=== PATIENT | male | born 1965 | race Caucasian/White ===

== ENCOUNTER 2021-05-10 10:23 | Emergency (ER) | payer OTHER, SELFPAY ==
[2021-05-10 10:31] VITALS: BP 131/74; PULSE 126; RESP 20; TEMP 37.1; O2SAT 98
--- NOTE | 2021-05-10 11:27 | ED.GENADULT ---
HPI - General Adult General Chief complaint: Urogenital-Male Stated complaint: headache, delerium fever body aches Time Seen by Provider: 05/10/21 11:15 Source: patient, RN notes reviewed and old records reviewed Mode of arrival: ambulatory Limitations: no limitations History of Present Illness HPI narrative: 55-year-old male who presents to [facility] with complaints of having body aches, fevers,chills, nasal drainage, headache, nausea with some diarrhea for the past 2 days. Patient states he feels like he has the flu. He denies any sore throat, acute nasal or chest congestion, denies any vomiting. Patient states that he has been running low grade temperatures of 99F. He states that he has had both of is COVID immunizations.Patient denies any acute cough or any shortness of breath with respirations even and nonlabored. Related Data Home Medications Medication Instructions Recorded Confirmed BuSpar 05/10/21 Allergies Allergy/AdvReac Type Severity Reaction Status Date / Time naproxen Allergy Unknown Verified 05/10/21 11:19 Review of Systems Review of Systems: Narrative: CONSTITUTIONAL: reports low grade fever, chills, or sweats. EYES: Denies visual changes, redness, or discharge. ENT: Positive rhinorrhea, no congestion, sore throat, or otalgia. CARDIOVASCULAR: Denies chest pain, palpitations, or edema. RESPIRATORY: Denies cough or dyspnea. GASTROINTESTINAL: Denies abdominal pain,positive for nausea, no vomiting, positive for some diarrhea. GENITOURINARY: Denies dysuria or hematuria. SKIN: Denies rash or itching. MUSCULOSKELETAL: Denies back pain, joint pain, reports generalized body aches NEUROLOGIC: Positive for frontal headache, no numbness, or weakness, states feels some lightheadedness at times PSYCHIATRIC:Positive for history of anxiety or depression. All systems reviewed & are unremarkable except as noted in HPI and below PMFSH Past Medical History Medical History (Updated 05/11/21 @ 13:44 by Cyndy Patel NP) Anxiety and depression Diabetes Elevated cholesterol Hypertension Surgical History Surgical History (Updated 05/11/21 @ 13:48 by Cyndy Patel NP) H/O arthroscopic knee surgery bilateral History of bilateral carpal tunnel release Family History Family History (Updated 05/11/21 @ 13:44 by Cyndy Patel NP) Other Diabetes mellitus Hypertension Social History Social History (Updated 05/11/21 @ 13:46 by Cyndy Patel NP) Smoking status: Former smoker Additional smoking assessment comments: quit 8 years ago Alcohol intake: unknown Substance use: unknown Living arrangements: with family Gender identity (if verbalized by the patient): Male Comments At time of signature, agree with nursing past medical, surgical, social and family history. There is no relevant family history pertinent to the presenting complaint Exam Narrative: Exam Narrative: GENERAL: Well-appearing, well-nourished, and in no acute distress. HEAD: Normocephalic, atraumatic. EYES: PERRLA and EOMI. ENT: Nares clear, clear rhinorrhea no epistaxis. Mucous membranes moist.TM's normal with good light reflex, throat pink with no lesions or exudates, no tonsil enlargement, some post nasal drainage NECK: Supple.no lymphadenopathy CHEST: Clear to auscultation. No respiratory distress.no cough noted, SAO2 98% on room air HEART: Regular rate and rhythm. No murmur heard. Normal peripheral pulses. ABDOMEN: Soft, nontender, nondistended, normal active bowel sounds.negative McBurney point tenderness EXTREMITIES: Normal range of motion. No edema. SKIN: Warm, dry, no rash. NEURO: No focal deficits. Alert and oriented x3. Course Vital Signs Vital signs: Vital Signs Temperature 37.1 C 05/10/21 10:31 Pulse Rate 126 H 05/10/21 10:31 Respiratory Rate 20 05/10/21 10:31 Blood Pressure 131/74 05/10/21 10:31 Pulse Oximetry 98 05/10/21 10:31 Temperature 37.1 C 05/10/21 10:31 Pul
[2021-05-11 15:56] LABS: SARS-CoV-2 RNA PCR Negative
== END 2021-05-10 12:32 | disposition home or self-care (01) ==
PROVIDERS: Emergency Provider Registered Nurse; PCP Internal Medicine
DX: B34.9 Viral infection, unspecified (principal); Z20.822 Contact with and (suspected) exposure to COVID-19; Z87.891 Personal history of nicotine dependence; E11.9 Type 2 diabetes mellitus without complications; E78.00 Pure hypercholesterolemia, unspecified; I10 Essential (primary) hypertension
CPT/HCPCS: 81003; 87081; 87086; 87088; 87426; 87804; 87880; 99213; C9803; G0463; U0003; U0005

== ENCOUNTER 2022-03-26 13:56 | Emergency (ER) | payer OTHER, SELFPAY ==
[2022-03-26 14:01] VITALS: BP 131/72; PULSE 87; RESP 20; TEMP 37.1; O2SAT 99
--- NOTE | 2022-03-26 14:02 | ED.URI ---
HPI - URI/Sore Throat General Chief Complaint: Upper Respiratory Infection Stated Complaint: sore throat Time Seen by Provider: 03/26/22 14:02 Source: patient Mode of arrival: ambulatory Limitations: no limitations History of Present Illness HPI Narrative: Antoni is a 56-year-old male patient presenting to the clinic today with complaints of sore throat that began last night. He reports No fever or chills. No known exposure to anybody COVID, flu, or strep. MD elicited complaint: sore throat and nasal congestion Related Data Home Medications Medication Instructions Recorded Confirmed BuSpar 05/10/21 atorvastatin 03/26/22 bupropion HCl mg PO 03/26/22 buspirone mg 03/26/22 buspirone mg 03/26/22 empagliflozin [Jardiance] mg 03/26/22 lisinopril 03/26/22 metformin mg 03/26/22 quetiapine 03/26/22 sitagliptin [Januvia] mg 03/26/22 venlafaxine mg PO 03/26/22 Allergies Allergy/AdvReac Type Severity Reaction Status Date / Time naproxen Allergy Unknown Verified 03/26/22 14:14 Review of Systems Review of Systems: Pertinent positives per HPI. Patient denies any fever, chills, rash, headache, visual changes, dizziness, cough, shortness of breath, chest pain, palpitations, nausea, vomiting, diarrhea, constipation, abdominal pain, or any urinary issues. [facility] Past Medical History Medical History Anxiety and depression Diabetes Elevated cholesterol Hypertension Surgical History Surgical History H/O arthroscopic knee surgery bilateral History of bilateral carpal tunnel release Family History Family History Other Diabetes mellitus Hypertension Social History Social History Smoking status: Former smoker Additional smoking assessment comments: quit 8 years ago Alcohol intake: unknown Substance use: unknown Gender identity (if verbalized by the patient): Male Comments At the time of my signature, I reviewed and agree with the nursing past medical, surgical, social, and family history. There is no relevant family history pertinent to the patient complaint. Exam Narrative: General: Well-developed, well nourished, in no apparent distress Head: Normocephalic, atraumatic Eyes: Pupils equally round and reactive to light bilaterally, EOM intact, sclera and conjunctive clear, no discharge, lids normal Ears: TMs intact and clear, ear canals clear, no drainage, grossly hearing normal. Nose: Nares patent, no discharge, no inflammation, no sinus tenderness. Mouth: Oral pharynx without lesions or masses, good dentition, MMM. Neck: Supple, trachea midline, no enlargement of anterior or posterior cervical nodes, no thyroid masses or goiter palpable. Cardio: Regular rate and rhythm, s1 and s2 normal, no murmur appreciated. Resp: Clear to auscultation bilaterally, no rhonchi, rales, wheezing or rubs Course Course Emergency Course: Portions of this record may have been created with voice recognition software. Level of Care: Express Care Visit Vital Signs Vital signs: Vital Signs Temperature 37.1 C 03/26/22 14:01 Pulse Rate 87 03/26/22 14:01 Respiratory Rate 20 03/26/22 14:01 Blood Pressure 131/72 03/26/22 14:01 Pulse Oximetry 99 03/26/22 14:01 Temperature 37.1 C 03/26/22 14:01 Pulse Rate 87 03/26/22 14:01 Respiratory Rate 20 03/26/22 14:01 Blood Pressure 131/72 03/26/22 14:01 Pulse Oximetry 99 03/26/22 14:01 Vital signs reviewed MDM - URI/Sore Throat MDM Narrative Medical decision making narrative: At the time of visit patient is resting comfortably on the exam table. Strep testing was negative in the clinic. Will send for culture. I suspect the patient has viral pharyngitis and will have him follow-up
== END 2022-03-26 14:28 | disposition home or self-care (01) ==
PROVIDERS: Emergency Provider Nurse Practitioner Family; PCP Internal Medicine
DX: J02.9 Acute pharyngitis, unspecified (principal); Z87.891 Personal history of nicotine dependence; E11.9 Type 2 diabetes mellitus without complications; E78.00 Pure hypercholesterolemia, unspecified; I10 Essential (primary) hypertension
CPT/HCPCS: 87081; 87880; 99213; G0463

== ENCOUNTER → 2022-04-10 12:45 | Outpatient (CLI) | payer OTHER, SELFPAY ==
--- NOTE | ~2022-04-10 | XR_ITS ---
EXAM: XR knee LT min 4V DATE: 04/10/2022 19:44 HISTORY: PAIN LT KNEE JOINT. . COMPARISON: 08/23/2015. FINDINGS: Normal mineralization. No fracture or dislocation. No lytic or blastic lesion. Mild medial joint space narrowing. Mild tricompartmental osteophytosis. Achilles and quadriceps insertion enthes opathy. No erosion or periosteal change. Soft tissues within normal limits. IMPRESSION: Mild tricompartmental osteoarthritis.. Reviewed, dictated and finalized at location K.
== END ==
LOC: EXPBRAD 12:47
PROVIDERS: PCP Internal Medicine; Visit Provider Internal Medicine
DX: M16.12 Unilateral primary osteoarthritis, left hip (principal)
CPT/HCPCS: 73564

== ENCOUNTER 2022-06-29 13:49 | Outpatient (CLI) | payer OTHER, SELFPAY ==
--- NOTE | ~2022-06-29 | MR_ITS ---
EXAMINATION: MR knee LT wo con DATE: 06/29/2022 14:58 INDICATION: Left knee pain TECHNIQUE: Magnetic resonance imaging (MRI) of the left knee was performed without intravenous contra st. Sequences included coronal PD-weighted FSE, coronal PD-weighted FS FSE, sagittal T2-weighted FSE , sagittal PD-weighted FS FSE and axial PD weighted fat saturated FSE. COMPARISON: None. FINDINGS: Medial compartment: Full-thickness radial tear near the posterior root of the medial meniscus. Small region of shallow ch ondral ulceration along the lateral margin of the anterior weightbearing medial femoral condyle. Cart ilage in the medial compartment is otherwise normal. Lateral compartment: Lateral meniscus is normal. Articular cartilage is normal. Patellofemoral compartment: Articular cartilage is normal. Ligaments and tendons: Anterior and posterior cruciate ligaments are normal. The medial collateral ligament and fibular malorie ateral ligament complex are normal. The extensor mechanism is normal. The visualized medial and later al hamstring tendons as well as the iliotibial band are normal. Fluid: Very small left knee joint effusion at the suprapatellar pouch. No loose osteochondral bodies identif ied. Osseous/other: T2 hyperintense intraosseous ganglion cyst at the proximal tibia which appears to rise at the footpla te of the posterior root of the medial meniscus and insertion of the posterior cruciate ligament. Oth erwise normal marrow signal. No fracture or pathologic marrow replacing process. IMPRESSION: 1. Full-thickness radial tear near the posterior root of the medial meniscus. 2. Small region of shallow chondral ulceration along the lateral margin anterior weightbearing medial femoral condyle. 2. Very small left knee joint effusion. Reviewed, dictated and finalized at location A. IMPRESSION: 1. Full-thickness radial tear near the posterior root of the medial meniscus. 2. Small region of shallow chondral ulceration along the lateral margin anterio r weightbearing medial femoral condyle. 2. Very small left knee joint effusion.
== END 2022-06-29 13:50 ==
LOC: MICIMG 13:50
PROVIDERS: PCP Internal Medicine; Visit Provider Nurse Practitioner Family
DX: M25.462 Effusion, left knee (principal); S83.242A Other tear of medial meniscus, current injury, left knee, initial encounter; X58.XXXA Exposure to other specified factors, initial encounter
CPT/HCPCS: 73721

== ENCOUNTER 2024-10-17 13:55 | Outpatient (CLI) | payer OTHER, SELFPAY ==
--- NOTE | ~2024-10-17 | MR_ITS ---
EXAMINATION: MR elbow RT wo con DATE: 10/17/2024 15:30 INDICATION: Right elbow pain TECHNIQUE: Magnetic resonance imaging (MRI) of the right elbow was performed without intravenous cont rast. Sequences included coronal, axial, and sagittal PD-weighted FS FSE and coronal, axial, and sagi ttal PD-weighted FSE. COMPARISON: None FINDINGS: Osseous/other: Normal alignment. Low signal intensity bone island at the proximal ulna. Otherwise normal bone marrow signal with no marrow edema, fracture, osteochondral lesion or abnormal marrow replacing process. Tendons: Triceps and brachialis tendons are normal. Mild tendinopathy without tear at the distal biceps brachi i tendon. Heterotopic ossification and mild tendinopathy of the common flexor tendon wad without disc rete tear. Moderate tendinopathy without tear of the common extensor tendon wad. Ligaments: The medial collateral ligament complex is normal. There is mild increased signal of the proximal late ral collateral ligament consistent with mild scarring related to chronic sprain. Cubital tunnel: Cubital tunnel is unremarkable with normal signal and caliber of the ulnar nerve. Fluid: Physiologic amount of fluid the elbow joint. IMPRESSION: 1. Moderate tendinopathy without tear of the proximal extensor tendon wad. 2. Mild tendinopathy without tears of the common flexor tendon wad of the distal biceps brachii tendo n. 3. Scarring consistent with mild sprain of the proximal lateral collateral ligament. Reviewed, dictated and finalized at location A. [employer] IMPRESSION: 1. Moderate tendinopathy without tear of the proximal extensor tendon wad. 2. Mild tendinopathy without tears of the common flexor tendon wad of the dista l biceps brachii tendon. 3. Scarring consistent with mild sprain of the proximal lateral collateral liga ment.
== END 2024-10-17 13:56 | disposition home or self-care (01) ==
PROVIDERS: PCP Nurse Practitioner Family; Visit Provider Nurse Practitioner Family
DX: M67.823 Other specified disorders of tendon, right elbow (principal)
CPT/HCPCS: 73221